=== PATIENT | male | born 1980 | race Caucasian/White ===

== ENCOUNTER 2016-10-16 05:37 | Emergency (ER) | payer OTHER ==
--- NOTE | 2016-10-16 05:47 | EDPHY ---
H & P HPI/ROS: HPI CHIEF COMPLAINT: Possible herpes zoster HISTORY OF PRESENT ILLNESS: This patient 36-year-old male, significant past medical history of herpes zoster, and insomnia, he presents emergency room stating that he thinks he may have shingles on his right lateral chest. Patient is very familiar shingles he has had shingles multiple times. States yesterday he noticed a couple lesions that were painful appeared to be small vesicles. Denies any fever, neck pain chest pain or shortness of breath. Does not have significant pain. Decided come the emergency room to get acyclovir as he ran out of a he usually carries supply. He has a new 8-week-old baby at home and he would like acyclovir in case this becomes worsening zoster. Past Medical History: Herpes zoster, insomnia Past Surgical History: No recent surgical history Social History: Denies daily use of drugs alcohol tobacco products Family History: Noncontributory ROS REVIEW OF SYSTEMS: A comprehensive 10 point review of systems is otherwise negative aside from elements mentioned in the history of present illness. Exam Constitutional appears well nontoxic triage nursing summary reviewed, vital signs reviewed, awake/alert. Eyes normal conjunctivae and sclera, EOMI, PERRLA. HENT normal inspection, atraumatic, moist mucus membranes, no epistaxis, neck supple/ no meningismus, no raccoon eyes. Respiratory clear to auscultation bilaterally, normal breath sounds, no respiratory distress, no wheezing. Cardiovascular rate normal, regular rhythm, no murmur, no edema, distal pulses normal. Gastrointestinal soft, non-tender, no rebound, no guarding, normal bowel sounds, no distension, no pulsatile mass. Genitourinary no CVA tenderness. Musculoskeletal no midline vertebral tenderness, full range of motion, no calf swelling, no tenderness of extremities, no meningismus, good pulses, neurovascularly intact. Skin 1 little area right lateral chest erythema raise lesion possible vesicle, otherwise no significant blisters. Neurologic awake, alert and oriented x 3, AAOx3, moves all 4 extremities equally, motor intact, sensory intact, CN II-XII intact, normal cerebellar, normal vision, normal speech. Psychiatric normal mood/affect. Heme/Lymph/Immune no lymphadenopathy. Differential Diagnosis: Includes but is not limited to in a particular order, herpes zoster, acne Medical Decision Making: Plan for this patient given , and history of zoster will place on acyclovir 800 mg 5 times a day. Re-evaluation: Patient understands return emergency room if develops any worsening symptoms questions or concerns Source: Patient Allergies/Adverse Reactions: No Known Allergies Allergy (Unverified 04/21/09 16:05) Home Medications: Medication Instructions Recorded Acyclovir 04/21/09 PREDNISONE 60 mg PO DAILY #6 04/21/09 Acyclovir 800 mg PO 5XD #35 tab 10/16/16 Departure - Departure Disposition: Home, Routine, Self-Care Clinical Impression: Shingles Qualifiers: Herpes zoster complications: without complications Qualified Code(s): B02.9 - Zoster without complications Condition: Good Instructions: Shingles (ED) Additional Instructions: 1. Return emergency room if you have any worsening symptoms questions or concerns. Referrals: Jed Resendiz MD [Primary Care Provider] - As per Instructions Prescriptions: Acyclovir 800 mg PO 5XD #35 tab
[2016-10-16 05:59] VITALS: BP 117/85; PULSE 57; RESP 16; TEMP 97.9; O2SAT 95
== END 2016-10-16 06:07 | disposition home or self-care (01) ==
DX: B02.9 Zoster without complications (principal)